=== PATIENT | female | born 1975 | race Caucasian/White ===

== ENCOUNTER → 2020-06-10 | Outpatient (CLI) | payer BC ==
[~2020-06-10] MED LIST: AVIDOXY100 MG PO; DAILY VALUE1 EACH PO; HYDROCODON-ACE1 EAC4 PO; SINGULAIR10 MG PO
[2020-06-10 12:22] LABS: HEMOGLOBIN 14.7 gm/dl (12.3-15.3); RED BLOOD COUNT 4.78 M/UL (4.00-5.10)
[2020-06-10 12:42] LABS: BUN/CREATININE RATIO 12 (0-10)
== END ==
LOC: OPSV2 10:58
PROVIDERS: Orthopaedic Surgery
DX: Z11.52 Encounter for screening for COVID-19 (principal)
CPT/HCPCS: 36415; 80048; 85025

== ENCOUNTER → 2020-06-15 | Day surgery (SDC) | payer BC ==
[~2020-06-15] VITALS: Ht 162.6 cm; Wt 90.7 kg
== END | disposition home or self-care (01) ==
LOC: OR 06:58
PROVIDERS: Orthopaedic Surgery
PROC: 0RR Upper Joints, Replacement (ICD-10-PCS; principal; 2020-06-15 09:00)
DX: M19.041 Primary osteoarthritis, right hand (principal); J30.2 Other seasonal allergic rhinitis; G89.29 Other chronic pain; Z79.2 Long term (current) use of antibiotics; Z79.899 Other long term (current) drug therapy; Z91.018 Allergy to other foods; Z20.822 Contact with and (suspected) exposure to COVID-19
CPT/HCPCS: 73130; 76000; C1713; J0690; J1100; J1885; J2001; J2250; J2405; J2704; J3010; J7120

== ENCOUNTER → 2021-11-07 | Outpatient (CLI) | payer BC ==
[~2021-11-07] MED LIST changes: +FLONASE ALLER15.8 ML; +HYDROCODON-ACE1 EAC2 PO
[2021-11-07 09:37] LABS: HEMOGLOBIN 14.8 gm/dl (12.3-15.3); RED BLOOD COUNT 4.83 M/UL (4.00-5.10); WHITE BLOOD COUNT 7.2 K/UL (4.5-11.0)
[2021-11-07 09:57] LABS: BUN/CREATININE RATIO 18 (0-10)
== END ==
LOC: OPSV2 08:00
PROVIDERS: Orthopaedic Surgery
DX: Z01.812 Encounter for preprocedural laboratory examination (principal); G56.02 Carpal tunnel syndrome, left upper limb
CPT/HCPCS: 36415; 80048; 84703; 85025

== ENCOUNTER → 2021-11-08 | Day surgery (SDC) | payer BC ==
[~2021-11-08] VITALS: Ht 162.6 cm; Wt 102.1 kg
== END | disposition home or self-care (01) ==
LOC: OR 05:22
DX: G56.03 Carpal tunnel syndrome, bilateral upper limbs (principal)
CPT/HCPCS: J0690; J2250; J3010